=== PATIENT | female | born 1955 | race Caucasian/White ===

== ENCOUNTER 2023-10-22 20:37 | Emergency (ER) | payer MEDICARE, OTHER, SELFPAY ==
[2023-10-22 20:45] VITALS: BMI 26.0
[2023-10-22 21:02] VITALS: BP 143/74
[2023-10-22 21:09] LABS: % Basophils 0.4 % (0-2); % Immature Granulocytes 0.3 % (0-0.5); % Lymphocytes 45.2 % (20.5-51.1); % Monocytes 10.2 % (1.7-9.3); % Neutrophils 42.9 % (42.2-75.2); Absolute Eosinophils 0.1 10^3/uL (0-0.7); Absolute Lymphocytes 3.2 10^3/uL (1.2-3.4); Absolute Monocytes 0.7 10^3/uL (0.1-0.6); Hematocrit 37.3 % (37.0-47.0); Hemoglobin 13.3 g/dL (12.0-16.0); Mean Corp Hgb Conc. 35.7 g/dL (33.0-37.0); Mean Corpuscular Hgb 29.4 pg (27.0-31.0); Mean Corpuscular Volume 82.5 fL (81.0-99.0); Mean Platelet Volume 10.4 fL (7.4-10.4); Nucleated Red Blood Cells % 0 %; Platelet Count 218 10^3/uL (130-400); Red Blood Cell Count 4.52 10^6/uL (4.20-5.40); Red Cell Dist. Width 12.4 % (11.5-14.5); White Blood Cell Count 7.1 10^3/uL (4.8-10.8)
--- NOTE | 2023-10-22 21:16 | ED.GENMED ---
History of Present Illness
General
Chief Complaint: Fainting/Passed Out
Time Seen by Provider: 10/22/23 20:49
History of Present Illness
History of Present Illness:
67-year-old female With no significant past medical history is to the emergency department for evaluation of a witnessed syncopal event that occurred at a wedding this evening. She reportedly was seated when she began to feel overheated and
lightheaded, per her she began to stare off and was unresponsive for several seconds. She began to list toward the right where she was lowered to the ground. After several seconds she became responsive, no postictal period, no seizure
activity was seen. Patient denies any preceding heart palpitations or chest pain. No vision changes. She currently feels well and denies complaints. She does note that she was outside in the heat for quite a long time during the wedding prior to
going inside to sit down to eat. She also had 3 alcoholic beverages.
Past History
Past History
ED Past Medical History: Hypothyroidism and Other (kidney stones, OA, lumbar HNP)
ED Past Surgical History: Gynecological and Orthopedic (lumbar donohue 2013)
Social History
Tobacco: Non-smoker
Personal:
Living: with family
Review of Systems
Review of Systems
Allergies reviewed?: Yes
All Other Systems: ROS reviewed and negative except as documented in HPI and ROS
Phy Exam
Physical Exam
Physical Exam:
GEN: Well appearing, NAD, WDWN
HEENT: Oral mucosa moist, no scleral icterus
Cardiac: Regular rate And rhythm no murmurs
Lung: No respiratory distress, no tachypnea
MSK: No gross deformity or injuries
Skin: Good color, no pallor or jaundice, no rashes
Neuro: AO x3, moves all extremities freely. Cranial nerves II through XII grossly intact, bilateral upper and lower extremity strength and sensation is intact in all atkins and symmetric
Psych: Calm, cooperative
Course
Orders/Labs/Results
Orders:
Orders
10/22/23 20:44
Electrocardiogram (*1) Urgent
Reason for Study: Other
Other Reason for Exam: Respiratory Distress
Cardiac Monitoring- Treatment ONCE
EKG- Treatment ONCE
IV Insert/Care/Rem.- Treatment PRN
CR Chest - 2 Views Urgent
Comment:
Reason For Exam: respiratory distress
O2 Therapy [RESP] Urgent
Titrate/Wean O2 to maintain O2 sat greater than (%): 93
Special Instructions: TO MAINTAIN CONTINUOUS O2 SATS >/= 93%
Pulse Ox/cont/shift [RESP] Urgent
Quantity: 1
Special Instructions: continuous pulse ox
10/22/23 21:03
Complete Blood Count/With Diff Urgent
Comprehensive Metabolic Panel Urgent
Abnormal Lab Results
10/22/23
21:03
Absolute Monos (auto) 0.7 H 10^3/uL
(0.1-0.6)
Monocytes % 10.2 H %
(1.7-9.3)
Carbon Dioxide 21 L mmol/L
(22-30)
BUN 18 H mg/dl
(7-17)
Glucose 194 H mg/dl
(70-99)
Calcium 10.3 H mg/dl
(8.4-10.2)
10/22/23 21:03
10/22/23 21:03
Vital Signs
Initial and Last Documented VS:
Initial Vital Signs
Temp Pulse Resp Pulse Ox
97.6 F 84 24 95
10/22/23 20:46 10/22/23 20:46 10/22/23 20:46 10/22/23 20:46
Last Documented Vital Signs
Temp Pulse Resp BP Pulse Ox
98.9 F 57 20 158/75 98
10/22/23 22:25 10/22/23 22:25 10/22/23 22:25 10/22/23 22:25 10/22/23 23:12
MDM/Problems Addressed
MDM/Problems Addressed:
67-year-old female presents after a syncopal event. This was likely vasovagal mediated by heat exposure, with alcohol intake. Labs are reassuring and EKG is unremarkable. Discharged in stable condition
Comment
Comment:
EKG independently interpreted by me shows a normal sinus rhythm at a rate of [address] concerning for ischemia, QTc of 446
*Critical Care Note
Total Time (30-74mins, 75-104mins- exclusive of procedures): Not Applicable
ED Attending Note
-
Portions of this chart may have been created with voice recognition software.� Occasional wrong word or��sound alike� substitutions may have occurred due to the inherent limitations of voice recognition software.
Discharge Plan
Departure
Patient Disposition: Home (Routine Discharge)
Date of Disposition: 10/22/23
Time of Disposition: 22:21
Patient with high blood pressure during this ER visit?: No
Discharge Problem:
Syncope
Instructions: Syncope (Fainting) (DC)
Prescriptions:
No Action
levothyroxine 75 MCG tablet
75 mcg PO DAILY
cyclobenzaprine 10 MG tablet
5 mg PO HS
meloxicam 7.5 MG tablet
7.5 mg PO DAILY
docosahexaenoic acid-epa 1 CAP capsule
1 cap PO DAILY
cholecalciferol (vitamin D3) 2,000 UNIT tablet
2,000 unit PO DAILY
metaxalone [Skelaxin] 800 MG tablet
800 mg PO TIDPRN PRN (Reason: pain) Qty: 12 0RF
Referrals:
NONE,* [Family Provider] -
Interventions
Interventions:
*Risk Screen - Suicide Last Done: 10/22/23 20:46
*General Assessment Last Done: 10/22/23 20:46
*Neglect/Abuse Screening Last Done: 10/22/23 20:46
ED- Fall Risk Assessment Last Done: 10/22/23 20:46
*ED COVID-19 Vaccine History Last Done: 10/22/23 20:46
*Nursing Disposition Last Done: 10/22/23 23:12
ED- Cardiac Assessment Last Done: 10/22/23 21:05
ED- Neurological Assessment Last Done: 10/22/23 21:05
Discharge Date and Time
Discharge Date/Time: 10/22/23 23:13
Print Language: LITHUANIAN
[2023-10-22 21:29] LABS: ALT (SGPT) 24 U/L (0-35); AST (SGOT) 31 U/L (14-36); Albumin 4.4 g/dl (3.5-5.0); Alkaline Phosphatase 87 U/L (38-126); Blood Urea Nitrogen 18 mg/dl (7-17); Calcium 10.3 mg/dl (8.4-10.2); Carbon Dioxide 21 mmol/L (22-30); Chloride 106 mmol/L (98-107); Estimated Creatinine Clearance 52 ml/min; Glucose 194 mg/dl (70-99); Potassium 3.7 mmol/L (3.5-5.1); Sodium 142 mmol/L (135-145); Total Bilirubin 0.5 mg/dl (0.2-1.3); Total Protein 7.1 g/dl (6.3-8.2); eGFR > 60.00
[2023-10-22 22:17] VITALS: BP 158/75
[2023-10-22 22:25] VITALS: BP 158/75
== END 2023-10-22 23:13 | disposition home or self-care (01) ==
LOC: EMR 20:37
PROVIDERS: EMERGENCY PHYSICIAN Emergency Medicine
DX: R55 Syncope and collapse (principal); E03.9 Hypothyroidism, unspecified; Z87.442 Personal history of urinary calculi; M19.90 Unspecified osteoarthritis, unspecified site
CPT/HCPCS: 99283; 71046; 80053; 85025; 93005